=== PATIENT | female | born 1950 | race Caucasian/White ===

== ENCOUNTER → 2017-06-11 16:41 | Outpatient (CLI) | payer MEDICARE, OTHER ==
[2015-02-25 09:57] VITALS: BMI 24.4
[~2017-06-11 16:41] MED LIST: BAYER CHEWABLE81 MG PO; BIOTIN5 MG PO; CALCIUM 600+D T1 TA1 PO; DOXYCYCLINE HY100 M2 PO; FISH OIL 1,0001 CA1 PO; FOLIC ACID1 MG PO; GARLIC1 CAP PO; HYDROCHLOROTHIA25 MG PO; KRILL OIL 1,001 EAC1 PO; MELATONIN 3 MG1 TAB PO; MULTIPLE VITAMI1 TA1 PO; PRAVACHOL20 MG PO; RESTORIL15 MG PO; TENORMIN50 MG PO
== END | disposition home or self-care (01) ==
LOC: D.MAMMO 05-27 11:00
DX: Z12.31 Encounter for screening mammogram for malignant neoplasm of breast (principal)

== ENCOUNTER 2017-07-28 10:21 | Emergency (ER) | payer MEDICARE, OTHER ==
[2015-02-25 09:57] VITALS: BMI 24.4
[2017-07-28 11:01] LABS: BASOPHILS 0.3 % (0-2); EOSINOPHILS 2.6 % (0-7); HEMATOCRIT 39.9 % (36.0-48.0); HEMOGLOBIN 13.1 g/dL (12-16); IMMATURE GRANULOCYTES 0.1 % (0-5); LYMPHOCYTES 14.2 % (15-50); MCHC 32.8 g/dL (31.0-37.0); MCV 91.3 fL (80.0-100.0); MEAN PLATELET VOLUME 9.5 fL (7.4-10.4); MONOCYTES 10.6 % (2-11); NEUTROPHILS 72.2 % (40-80); PLATELET COUNT 224 10x3/uL (130-400); RBC 4.37 10x6/uL (4.00-5.40); RDW 13.3 % (11.5-14.5)
== END 2017-07-28 11:43 | disposition home or self-care (01) ==
LOC: D.ER 10:21
PROVIDERS: Emergency Medicine
DX: J06.9 Acute upper respiratory infection, unspecified (principal); J01.90 Acute sinusitis, unspecified; I10 Essential (primary) hypertension

== ENCOUNTER 2018-06-12 08:00 | Outpatient (CLI) | payer MEDICARE, OTHER ==
[2015-02-25 09:57] VITALS: BMI 24.4
== END 2018-06-12 09:00 | disposition home or self-care (01) ==
LOC: D.MAMMO 08:00
DX: Z12.31 Encounter for screening mammogram for malignant neoplasm of breast (principal)

== ENCOUNTER → 2019-09-24 10:00 | Outpatient (CLI) | payer MEDICARE, OTHER ==
[2015-02-25 09:57] VITALS: BMI 24.4
== END | disposition home or self-care (01) ==
LOC: D.MAMMO 10:00
PROVIDERS: ATTEND Nurse Practitioner Family
DX: Z12.31 Encounter for screening mammogram for malignant neoplasm of breast (principal)

== ENCOUNTER 2020-11-14 11:45 | Outpatient (CLI) | payer MEDICARE, OTHER ==
[2015-02-25 09:57] VITALS: BMI 24.4
== END 2020-11-14 12:15 | disposition home or self-care (01) ==
LOC: D.MAMMO 11:45
PROVIDERS: ATTEND Nurse Practitioner
DX: Z12.31 Encounter for screening mammogram for malignant neoplasm of breast (principal)